=== PATIENT | male | born 1995 | race Caucasian/White ===

== ENCOUNTER 2017-01-01 05:40 | Emergency (ER) | payer SELFPAY ==
[~2017-01-01] VITALS: Ht 172.7 cm; Wt 72.6 kg
[~2017-01-01 05:40] MED LIST: ACCU MC; INSU100S22 SUBQ
[2017-01-01 05:51] VITALS: BP 135/78
[2017-01-01] MEDS ORDERED: TETRACAINE 0.5% OPTH SOL 2 ML BTL OP ONE (06:05)
[2017-01-01] MEDS ORDERED: FLUORESCEIN OPTH STRIP 1 MG OP ONE (06:05)
--- NOTE | 2017-01-01 06:10 | NUR ---
PT. AMBULATES TO ER BED 5
--- NOTE | 2017-01-01 06:17 | NUR ---
21Y/M PATIENT PRESENTS TO ED WITH C/O RT. EYE PAIN X 4 DAYS . PT STATES FB SPLIT IN HIS RT. EYE WHILE WORKING 4 DAYS AGO, TODAY PAIN INCREASES WITH EYE REDNESS.HX. DM; SKIN IS PINK/WARM/DRY, RT. EYE REDNESS WITH MINIMAL DISCHARGE; AAOX4 WITH EVEN AND STEADY GAIT; LUNGS CLEAR BL; HR EVEN AND REGULAR; PT DENIES ANY FEVER, CP, SOB, OR COUGH AT THIS TIME; PATIENT STATES PAIN OF 8/10 AT THIS TIME; VSS; PATIENT POSITIONED FOR COMFORT; HOB ELEVATED; BEDRAILS UP X2; BED DOWN. ER MD MADE AWARE OF PT STATUS.
--- NOTE | 2017-01-01 06:32 | NUR ---
Patient being evaluated by DR. MORALES at bedside.
[2017-01-01] MEDS ORDERED: NACL 0.9% 2,000 ML IV ONE ×2 (06:45→07:55)
[2017-01-01] MEDS ORDERED: ACETAMINOPHEN/CODEINE 300/30MG 1 TAB PO ONE (06:50)
[2017-01-01] MEDS ORDERED: KETOROLAC 30 MG/ML VIAL IVP ONE (06:50)
--- NOTE | 2017-01-01 07:15 | NUR ---
GIVE REPORT TO AVTAR ORTIZ.
--- NOTE | 2017-01-01 07:16 | NUR ---
Note paolo in EDM - 01/01/17 at 0719 by KEN Patient discharged with v/s stable. Written and verbal after care instructions given and explained. Patient alert, oriented and verbalized understanding of instructions. Ambulatory with steady gait. All questions addressed prior to discharge. ID band removed. Patient advised to follow up with PMD. Rx of tramadol given. Patient educated on indication of medication including possible reaction and side effects. Opportunity to ask questions provided and answered.
--- NOTE | 2017-01-01 08:12 | NUR ---
DR LOW AT BEDSIDE ASSESSING AAO PT, ABLE TO ANSWER QUESTIONS WITHOUT DIFFICULTY, NO ACUTE DISTRESS NOTED, ADDITIONAL 2L OF N/S 0.9 STARTED, WILL GIVE 10 UNITS OF REGULAR INSULIN IV PER DR GILMORE, WILL CONTINUE TO MONITOR
[2017-01-01] MEDS ORDERED: INSULIN HUMAN REGULAR 100 UNITS/ML 10 ML VIAL IVP ONE (08:15)
[2017-01-01 09:16] VITALS: BP 106/74
--- NOTE | 2017-01-01 09:16 | NUR ---
Patient discharged with v/s stable. Written and verbal after care instructions given and explained. Patient alert, oriented and verbalized understanding of instructions. Ambulatory with steady gait. All questions addressed prior to discharge. ID band removed. Patient advised to follow up with PMD. Rx of TOBRAMYCIN, TYELNOL, LANTUS given. Patient educated on indication of medication including possible reaction and side effects. Opportunity to ask questions provided and answered.
== END 2017-01-01 09:16 | disposition home or self-care (01) ==
LOC: MED 05:40
DX: S05.01XA Injury of conjunctiva and corneal abrasion without foreign body, right eye, initial encounter (principal); E11.65 Type 2 diabetes mellitus with hyperglycemia; Z88.2 Allergy status to sulfonamides; W22.8XXA Striking against or struck by other objects, initial encounter; Y93.89 Activity, other specified; Y92.89 Other specified places as the place of occurrence of the external cause; Y99.8 Other external cause status
CPT/HCPCS: 82948; 96361; 96374; 96375; 99284; J1815; J1885; J7030

== ENCOUNTER 2018-04-24 11:58 | Emergency (ER) | payer BC ==
[~2018-04-24] VITALS: Ht 170.2 cm; Wt 77.1 kg
[2018-04-24 12:03] VITALS: BP 126/71
--- NOTE | 2018-04-24 12:11 | NUR ---
PATIENT AMBULATED TO BED 4 AT THIS TIME.
--- NOTE | 2018-04-24 12:18 | NUR ---
A 22 YO M BIB FAMILY W/ C/O LEFT EYE PAIN AND REDNESS X 1 WEEK. REPORTS 1 YEAR AGO SAW PMD FOR SAME ISSUE, TOLD IT WAS CORNEAL ABRASIONS, BELIEVES IT IS THE SAME THING AGAIN. FEELS SIMILAR. REPORTS PHOTOPHOBIA. REPORTS BLURRINESS. DENIES BLINDNESS. DENIES FOREIGN OBJECT GETTING INTO THE EYE, HOWEVER WORKS IN A WAREHOUSE. DENIES N/V/D/FEVER. REPORTS HE RAN OUT OF EYE DROPS FROM LAST YEAR. 7/10 SHARP PAIN IN L EYE X 1 WEEK , RR EVEN AND UNLABORED . ER MD NOTIFIED. WILL CONTINUE TO MONITOR. SAFETY PRECAUTIONS IMPLEMENTED.
[2018-04-24] MEDS ORDERED: traMADol 50 MG TAB PO ONE (12:30)
[2018-04-24] MEDS ORDERED: HYDROcodone/APAP 5/325 MG 1 TAB TAB PO ONE (12:30)
[2018-04-24] MEDS ORDERED: TIMOLOL OP 0.5% 5 ML BTL OP ONE (12:30)
[2018-04-24] MEDS ORDERED: TETRACAINE HCL/PF 0.5% OPTH 4 ML BTL OP ONE (12:30)
[2018-04-24] MEDS ORDERED: FLUORESCEIN OPTH STRIP 0.6 MG ONE (12:46)
--- NOTE | 2018-04-24 13:10 | NUR ---
PT. RESTING IN BED, RR EVEN AND UNLABORED. WILL CONTINUE TO MONITOR. FAMILY AT BEDSIDE.
[2018-04-24] MEDS ORDERED: TETRACAINE HCL/PF 0.5% OPTH 4 ML BTL ONE (13:38)
[2018-04-24 14:41] VITALS: BP 128/75
--- NOTE | 2018-04-24 14:41 | NUR ---
Patient discharged with v/s stable. Written and verbal after care instructions given and explained. Patient alert, oriented and verbalized understanding of instructions. Ambulatory with steady gait. All questions addressed prior to discharge. ID band removed. Patient advised to follow up with PMD. Rx of GENTAMICIN, TRAMADOL given. Patient educated on indication of medication including possible reaction and side effects. Opportunity to ask questions provided and answered.
== END 2018-04-24 14:41 | disposition home or self-care (01) ==
LOC: MED 11:58
DX: H10.9 Unspecified conjunctivitis (principal); E10.8 Type 1 diabetes mellitus with unspecified complications; Z79.4 Long term (current) use of insulin
CPT/HCPCS: 82948; 99283

== ENCOUNTER 2020-10-28 23:00 | Emergency (ER) | payer BC, MEDICAID ==
[~2020-10-28] VITALS: Ht 172.7 cm; Wt 77.1 kg
[2020-10-28 23:14] VITALS: BP 124/79
--- NOTE | 2020-10-28 23:16 | NUR ---
to lobby a/w bed ambulatory
[2020-10-29] MEDS ORDERED: LOPERAMIDE 2 MG CAP PO ONE (00:05)
--- NOTE | 2020-10-29 00:17 | NUR ---
medicated as per [facility] order, patient tolerated well.
[2020-10-29 00:21] LABS: BASOPHILS % (AUTO) 0.3 % (0.0-2.0); EOSINOPHILS # (AUTO) 0.2 K/uL (0-0.4); EOSINOPHILS % (AUTO) 2.1 % (0.0-4.0); HEMATOCRIT 39.3 % (36-52); HEMOGLOBIN 13.8 g/dL (12.0-18.0); LYMPHOCYTES # (AUTO) 2.3 K/uL (2.0-11.5); LYMPHOCYTES % (AUTO) 32.4 % (20.5-51.1); MEAN CORPUSCULAR HEMOGLOBIN 30 pg (27-31); MEAN CORPUSCULAR HGB CONC 35 g/dL (33-37); MEAN CORPUSCULAR VOLUME 83.8 fL (80-94); MONOCYTES # (AUTO) 0.6 K/uL (0.8-1.0); MONOCYTES % (AUTO) 8.4 % (1.7-9.3); NEUTROPHILS # (AUTO) 4.1 K/uL (1.8-7.7); NEUTROPHILS % (AUTO) 56.8 % (42.2-75.2); PLATELET COUNT (AUTO) 230 K/uL (140-450); RED BLOOD CELL COUNT(AUTO) 4.69 MIL/uL (4.20-6.10); RED CELL DISTRIBUTION WIDTH 12.4 % (11.6-13.7); WHITE BLOOD COUNT (AUTO) 7.2 K/uL (4.8-10.8)
[2020-10-29 00:38] LABS: ALBUMIN 3.9 g/dL (3.4-5.0); ANION GAP 8.8 (8-16); CREATININE 0.8 mg/dL (0.6-1.3); POTASSIUM 3.8 mmol/L (3.5-5.1); TOTAL BILIRUBIN 0.6 mg/dL (0.0-1.0)
--- NOTE | 2020-10-29 00:50 | NUR ---
PT AMBULATED TO BED 09
--- NOTE | 2020-10-29 00:55 | NUR ---
25/M BIB SELF COMPLAINING OF EPIGASTRIC BURNING/STINGING PAIN 3/10 WHICH RADIATED TO LOWER ABDOMEN. PT ALSO VERBALIZES DIARRHEA FOR 2 DAYS. PT DENIES ANY N/V OR PAINFUL URINATION. PMH: DM ALLERGY: SULFA
--- NOTE | 2020-10-29 01:16 | NUR ---
Dr. Castro examining patient.
[2020-10-29] MEDS ORDERED: IMO2 PO (01:35)
[2020-10-29] MEDS ORDERED: FAMO-90 PO (01:36)
[2020-10-29] MEDS ORDERED: INSU100S22 SUBQ (01:37)
[2020-10-29 01:53] VITALS: BP 124/79
--- NOTE | 2020-10-29 01:54 | NUR ---
Patient discharged with v/s stable. Written and verbal after care instructions given and explained. Patient alert, oriented and verbalized understanding of instructions. Ambulatory with steady gait. All questions addressed prior to discharge. ID band removed. Patient advised to follow up with PMD. Rx of PEPCID, LOPERAMIDE, LANTUS given. Patient educated on indication of medication including possible reaction and side effects. Opportunity to ask questions provided and answered.
== END 2020-10-29 01:54 | disposition home or self-care (01) ==
LOC: MED 23:00
DX: R19.7 Diarrhea, unspecified (principal); R11.0 Nausea; R13.10 Dysphagia, unspecified; E10.9 Type 1 diabetes mellitus without complications; Z88.2 Allergy status to sulfonamides
CPT/HCPCS: 36415; 80053; 82948; 83690; 85025; 99283